=== PATIENT | male | born 1990 | race Caucasian/White ===

== ENCOUNTER 2017-09-24 08:59 | Emergency (ER) | payer SELFPAY ==
[~2017-09-24] VITALS: Ht 172.7 cm; Wt 75.7 kg
[2017-09-24 09:10] VITALS: Ht 172.7 cm; Wt 75.7 kg
[2017-09-24 11:35] VITALS: BP 131/89
== END 2017-09-24 11:35 | disposition home or self-care (01) ==
LOC: ED 08:59
DX: B02.9 Zoster without complications (principal)
CPT/HCPCS: J1885